=== PATIENT | female | born 1950 | race Caucasian/White ===

== ENCOUNTER 2019-10-31 17:15 | Outpatient (CLI) | payer MEDICARE, OTHER | END 2019-10-31 17:16 | disposition home or self-care (01) | LOC: LAB 17:15 | PROVIDERS: ATTEND Internal Medicine | DX: Z11.59 Encounter for screening for other viral diseases (principal) | CPT/HCPCS: 81599 ==

== ENCOUNTER 2020-01-25 10:04 | Outpatient (CLI) | payer MEDICARE, OTHER ==
--- NOTE | 2020-01-25 13:09 | Ultrasound Report ---
PROCEDURE: Abdomen Limited INDICATIONS: ELEVATED LFTS TECHNIQUE: Real-time scanning was performed of the abdominal and retroperitoneal organs, with image documentatio n. COMPARISON: None. FINDINGS: Liver: Liver is normal in size and homogeneous in echotexture. Gallbladder: Gallbladder demonstrates no stones. Wall thickness is within normal limits measuring 9 m m. Biliary ducts: Intrahepatic bile ducts are non-dilated. Extrahepatic bile duct caliber measures 4.5 mm. Normal is 6-7 mm or less in diameter, or 10 mm or less post-cholecystectomy. Pancreas: Visualized portions of the pancreas are sonographically normal. Kidneys: Kidneys are normal in size and echotexture. Right kidney measures 10.4 cm long. No hydron ephrosis or nephrolithiasis. No solid masses. Aorta: Visualized aorta is normal in caliber at less than 3 cm. Iliacs: Proximal common iliac arteries are normal in caliber at less than 2.5 cm. IVC: Intrahepatic inferior vena cava is patent. Miscellaneous: No free abdominal fluid. IMPRESSION: Unremarkable exam. Reviewed by: Silvina Collins MD on 01/25/2020 1:08 PM PDT Approved by: Silvina Collins MD on 01/25/2020 1:08 PM PDT Station ID: [id number]
== END 2020-01-25 10:05 | disposition home or self-care (01) ==
LOC: DI 10:04
PROVIDERS: ATTEND Internal Medicine
DX: R74.8 Abnormal levels of other serum enzymes (principal)
CPT/HCPCS: 76705

== ENCOUNTER 2021-01-29 09:17 | Outpatient (CLI) | payer MEDICARE, OTHER ==
[2021-01-29 10:34] LABS: CREATININE 0.7 mg/dL (0.4-1.0)
[2021-01-29] MEDS ORDERED: GADOBUTROL 15 MMOL/15 ML VIAL ONE (11:15)
--- NOTE | 2021-01-29 12:07 | MRI Report ---
PROCEDURE: Cervical Spine W/WO INDICATIONS: RT ARM PAIN,RT SH PAIN,NECK PAIN, H/O RA AND SCC CONTRAST: IV CONTRAST: Gadavist ml: 6 TECHNIQUE: Noncontrast sagittal T1 spin echo and T2 fast spin echo, sagittal STIR, sagittal PD fast spin echo, f oraminal oblique sagittal T2 fast spin echo, axial gradient echo or T2 fast spin echo through the cer vical spine. After the administration of contrast, sagittal and axial T1 spin echo with fat saturati on through the cervical spine. COMPARISON: None. FINDINGS: Image quality: Motion artifact is noted. Alignment and curvature: There is minimal retrolisthesis seen at C3-C4, C4-C5, and C5-C6. Marrow: Marrow demonstrates normal overall signal. Spinal cord: Visualized spinal cord is normal in size, without white matter lesions. No suspicious intramedullary enhancement. No cerebellar tonsillar herniation. Paraspinous soft tissues: No paravertebral masses or suspicious enhancement. C2-C3: The disc height is well-preserved. There is loss of disc signal seen. Minimal to mild disc osteophyte complex is seen. Mild facet hypertrophy is seen. No significant neuroforaminal narrowin g can be seen. Mild central canal narrowing is seen. C3-C4: Moderate loss of disc height and signal are seen. Moderate disc osteophyte complex is seen, with a central disc osteophyte protrusion. There is mild right-sided and moderate left-sided facet hy pertrophy seen. There is moderate to severe bilateral neuroforaminal narrowing seen. At least moderat e central canal narrowing is seen, with associated mass effect upon the ventral spinal cord. C4-C5: At least moderate loss of disc height and disc signal can be seen. At least moderate disc ost eophyte complex is seen. There is a central disc osteophyte protrusion. Uncovertebral joint hypertrop hy is seen at this level. At least moderate bilateral neuroforaminal narrowing can be seen. There is moderate to severe bilateral neuroforaminal narrowing seen at this level. Moderate to severe central canal narrowing is seen, with associated ventral cord flattening, as on series 602 image 21. C5-C6: Moderate to severe loss of disc height and disc signal can be seen. Moderate to prominent dis c osteophyte complex is seen, which is eccentric to the right. There is a central disc osteophyte pro trusion. Uncovertebral joint hypertrophy is seen at this level. Moderate facet hypertrophy is seen . Moderate to severe bilateral neuroforaminal narrowing can be seen. Moderate to severe central sonny l narrowing is seen. Associated mass effect is seen upon the ventral spinal cord. C6-C7: Moderate loss of disc height and signal are seen. At least moderate disc osteophyte complex i s seen, which is eccentric to the left. There is a mild central/right disc osteophyte protrusion seen . Mild to moderate facet hypertrophy is seen at this level. There is at least moderate bilateral neur oforaminal narrowing seen, right worse than left. Mild to moderate central canal narrowing is seen, w ith minimal mass effect upon the ventral spinal cord. C7-T1: Moderate loss of disc height and signal are seen. Moderate disc osteophyte complex is seen, w hich is eccentric to the right. Mild to moderate facet hypertrophy is seen at this level. There is at least moderate bilateral neuroforaminal narrowing seen. No significant central canal narrowing is se en. IMPRESSION: Multiple levels of cervical spine degenerative change are seen, which are most prominent at the C3-C4 , C4-C5, and C5-C6 levels. Reviewed by: Callum Wilkerson MD on 01/29/2021 11:05 AM JADEN Approved by: Callum Wilkerson MD on 01/29/2021 11:05 AM JADEN Station ID: [id number]
[2021-01-29] MEDS ORDERED: GADOBUTROL 15 MMOL/15 ML VIAL IVP ONE (15:48)
== END 2021-01-29 09:18 | disposition home or self-care (01) ==
LOC: DI 09:17
PROVIDERS: ATTEND Psychiatry & Neurology Neurology
DX: M79.601 Pain in right arm (principal); M25.511 Pain in right shoulder; M50.21 Other cervical disc displacement, high cervical region; M48.02 Spinal stenosis, cervical region; M25.78 Osteophyte, vertebrae
CPT/HCPCS: 36415; 72156; 82565; A9585

== ENCOUNTER 2021-03-11 16:34 | Outpatient (CLI) | payer MEDICARE, OTHER | END 2021-03-11 16:35 | disposition home or self-care (01) | LOC: COV 16:34 | PROVIDERS: ATTEND Psychiatry & Neurology Neurology | DX: Z01.812 Encounter for preprocedural laboratory examination (principal); M79.601 Pain in right arm; Z20.822 Contact with and (suspected) exposure to COVID-19 ==

== ENCOUNTER 2021-03-18 08:53 | Outpatient (CLI) | payer MEDICARE, OTHER ==
[2021-03-18 09:09] LABS: BASOPHILS # (AUTO) 0.1 10^3/uL (0.0-0.1); EOSINOPHILS # (AUTO) 0.3 10^3/uL (0.0-0.7); EOSINOPHILS % (AUTO) 4.1 %; HCT - HEMATOCRIT 38.4 % (37.0-47.0); HGB - HEMOGLOBIN 12.1 g/dL (12.0-16.0); LYMPHOCYTES % (AUTO) 16.5 %; MEAN CORPUSCULAR HEMOGLOBIN 30.9 pg (27.0-31.0); MEAN CORPUSCULAR HGB CONC 31.5 g/dL (32.0-36.0); MEAN CORPUSCULAR VOLUME 98.2 fL (81.0-99.0); MEAN PLATELET VOLUME 9.3 fL (7.9-10.8); MONOCYTES # (AUTO) 0.7 10^3/uL (0.0-1.0); MONOCYTES % (AUTO) 11.4 %; NEUTROPHILS # (AUTO) 4.1 10^3/uL (1.5-6.6); NEUTROPHILS % (AUTO) 66.8 %; PLT - PLATELET COUNT 254 10^3/uL (130-450); RED BLOOD COUNT 3.91 10^6/uL (4.20-5.40); RED CELL DISTRIBUTION WIDTH 14.1 % (12.0-15.0); WHITE BLOOD COUNT 6.1 x10^3/uL (4.8-10.8)
[2021-03-18 09:34] LABS: ALBUMIN 4.1 g/dL (3.2-5.5); ALBUMIN/GLOBULIN RATIO 1.3 (1.0-2.2); ALKALINE PHOSPHATASE 55 IU/L (42-121); ALT ALANINE AMINOTRANSFERASE 26 IU/L (10-60); AST ASPARTATE AMINOTRANSFERASE 30 IU/L (10-42); BILIRUBIN,TOTAL 0.6 mg/dL (0.2-1.0); BUN - BLOOD UREA NITROGEN 18 mg/dL (6-20); CALCIUM 10.1 mg/dL (8.5-10.3); CARBON DIOXIDE - CO2 27 mmol/L (21-32); CHLORIDE 100 mmol/L (101-111); CHOLESTEROL 204 mg/dL; CREATININE 0.8 mg/dL (0.4-1.0); GFR - MDRD 70 (>89); GLUCOSE 99 mg/dL (70-100); HDL CHOLESTEROL 100 mg/dL; LDL CHOLESTEROL,CALCULATED 89 mg/dL; LDL/HDL RATIO 0.9 (<4.4); POTASSIUM 4.2 mmol/L (3.5-5.0); SODIUM 138 mmol/L (135-145); TOTAL PROTEIN 7.2 g/dL (6.7-8.2); TRIGLYCERIDES 77 mg/dL; VLDL CHOLESTEROL 15 mg/dL
[2021-03-18 09:47] LABS: THYROID STIMULATING HORMONE 0.99 uIU/mL (0.34-5.60)
[2021-03-18 09:49] LABS: FREE T4 (FREE THYROXINE) 1.27 ng/dL (0.58-1.64)
[2021-03-18 09:58] LABS: FOLATE 20.83 ng/mL (5.90 - >24.8)
[2021-03-20 12:02] LABS: HEPATITIS C ANTIBODY NON-REACTIVE (NON-REACTIVE)
[2021-03-21 15:31] LABS: THYROID PEROXIDASE ANTIBODIES 5 IU/mL (<9)
== END 2021-03-18 08:54 | disposition home or self-care (01) ==
LOC: LAB 08:53
PROVIDERS: ATTEND Internal Medicine
DX: M06.9 Rheumatoid arthritis, unspecified (principal); C73 Malignant neoplasm of thyroid gland; Z79.899 Other long term (current) drug therapy; G54.9 Nerve root and plexus disorder, unspecified; D64.9 Anemia, unspecified; C43.9 Malignant melanoma of skin, unspecified; Z13.6 Encounter for screening for cardiovascular disorders
CPT/HCPCS: 36415; 80053; 80061; 81599; 82746; 83721; 84439; 84443; 85025; 86376; 86800; 86803

== ENCOUNTER 2021-04-28 10:23 | Outpatient (CLI) | payer MEDICARE, OTHER ==
--- NOTE | 2021-04-29 08:20 | Mammography Report ---
BILATERAL DIGITAL SCREENING MAMMOGRAM 3D/2D: 04/28/2021 CLINICAL: Baseline exam. Routine screening. No prior exams were available for comparison. The tissue of both breasts is predominantly fatty. No significant masses, calcifications, or other findings are seen in either breast. IMPRESSION: NEGATIVE There is no mammographic evidence of malignancy. A 1 year screening mammogram is recommended. This exam was interpreted at Station ID: [id number]. NOTE: For mammograms, a report in lay terms will be sent to the patient. Approximately 15% of breast malignancies will not be visualized mammographically. In the management of a palpable breast mass, a negative mammogram must not discourage biopsy of a clinically suspicious lesion. Electronically Signed By: Alan Rogers acr/penrad:04/28/2021 15:25:55 ACR BI-RADS Category 1: Negative 3341F PARENCHYMAL PATTERN: (F) - The breast(s) demonstrate(s) diffuse fatty replacement. BI-RADS CATEGORY: (1) - 1 RECOMMENDATION: (ANNUAL) - Recommend routine annual screening mammography. [id number] 1 year screening LATERALITY: (B)
== END 2021-04-28 10:24 | disposition home or self-care (01) ==
LOC: DI 10:23
PROVIDERS: ATTEND Internal Medicine
DX: Z12.31 Encounter for screening mammogram for malignant neoplasm of breast (principal)

== ENCOUNTER 2022-09-21 10:29 | Outpatient (CLI) | payer MEDICARE, OTHER ==
[2022-09-21 10:54] LABS: BASOPHILS # (AUTO) 0.1 10^3/uL (0.0-0.1); BASOPHILS % (AUTO) 1.5 %; EOSINOPHILS # (AUTO) 0.3 10^3/uL (0.0-0.7); EOSINOPHILS % (AUTO) 5.9 %; HCT - HEMATOCRIT 37.3 % (37.0-47.0); HGB - HEMOGLOBIN 11.9 g/dL (12.0-16.0); LYMPHOCYTES # (AUTO) 1.1 10^3/uL (1.5-3.5); LYMPHOCYTES % (AUTO) 21.6 %; MEAN CORPUSCULAR HEMOGLOBIN 30.7 pg (27.0-31.0); MEAN CORPUSCULAR HGB CONC 31.9 g/dL (32.0-36.0); MEAN CORPUSCULAR VOLUME 96.1 fL (81.0-99.0); MEAN PLATELET VOLUME 9.4 fL (7.9-10.8); MONOCYTES # (AUTO) 0.3 10^3/uL (0.0-1.0); MONOCYTES % (AUTO) 6.1 %; NEUTROPHILS # (AUTO) 3.4 10^3/uL (1.5-6.6); NEUTROPHILS % (AUTO) 64.7 %; PLT - PLATELET COUNT 256 10^3/uL (130-450); RED BLOOD COUNT 3.88 10^6/uL (4.20-5.40); WHITE BLOOD COUNT 5.2 x10^3/uL (4.8-10.8)
[2022-09-21 11:14] LABS: % IRON SATURATION 25 % (20-50); ALBUMIN 3.9 g/dL (3.2-5.5); ALBUMIN/GLOBULIN RATIO 1.3 (1.0-2.2); ALKALINE PHOSPHATASE 39 IU/L (42-121); ALT ALANINE AMINOTRANSFERASE 22 IU/L (10-60); AST ASPARTATE AMINOTRANSFERASE 28 IU/L (10-42); BILIRUBIN,TOTAL 0.4 mg/dL (0.2-1.0); BUN - BLOOD UREA NITROGEN 19 mg/dL (6-20); CALCIUM 9.2 mg/dL (8.5-10.3); CARBON DIOXIDE - CO2 27 mmol/L (21-32); CHLORIDE 104 mmol/L (101-111); CHOL/HDL RATIO 1.9 (<4.4); CHOLESTEROL 226 mg/dL; CREATININE 0.7 mg/dL (0.4-1.0); GFR - MDRD 82 (>89); GLUCOSE 86 mg/dL (70-100); HDL CHOLESTEROL 118 mg/dL; IRON 90 ug/dL (28-170); LDL CHOLESTEROL,CALCULATED 99 mg/dL; LDL/HDL RATIO 0.8 (<4.4); POTASSIUM 4.1 mmol/L (3.5-5.0); SODIUM 137 mmol/L (135-145); TOTAL IRON BINDING CAPACITY 360 ug/dL (250-450); TRANSFERRIN 257 mg/dL (192-382); TRIGLYCERIDES 45 mg/dL; VLDL CHOLESTEROL 9 mg/dL
[2022-09-21 11:20] LABS: THYROID STIMULATING HORMONE 0.66 uIU/mL (0.34-5.60)
[2022-09-21 11:27] LABS: FERRITIN 90.7 ng/mL (11.0-306.8)
[2022-09-21 11:31] LABS: FOLATE 15.19 ng/mL (5.90 - >24.8)
[2022-09-21 13:00] LABS: ESTIMATED AVERAGE GLUCOSE 103 mg/dL (70-100); HEMOGLOBIN A1c% 5.2 % (4.27-6.07)
[2022-09-22 20:07] LABS: THYROGLOBULIN ANTIBODY 2.6 IU/mL (0.0-0.9)
== END 2022-09-21 10:30 | disposition home or self-care (01) ==
LOC: LAB 10:29
PROVIDERS: ATTEND Internal Medicine
DX: C43.9 Malignant melanoma of skin, unspecified (principal); G62.9 Polyneuropathy, unspecified; M06.9 Rheumatoid arthritis, unspecified; C73 Malignant neoplasm of thyroid gland; M79.676 Pain in unspecified toe(s)
CPT/HCPCS: 36415; 80053; 80061; 81599; 82607; 82728; 82746; 83036; 83540; 83721; 84443; 84466; 85025; 86376; 86800

== ENCOUNTER 2022-10-15 14:15 | Outpatient (CLI) | payer MEDICARE, OTHER ==
--- NOTE | 2022-10-16 10:18 | Mammography Report ---
BILATERAL DIGITAL SCREENING MAMMOGRAM 3D/2D WITH EXAGGERATED CC: 10/15/2022 CLINICAL: Routine screening. Comparison is made to exam dated: 04/28/2021 mammogram - [facility]. There are scattered areas of fibroglandular density in both breasts (category b / 25%-50% glandular t issue). No significant masses, calcifications, or other findings are seen in either breast. There has been no significant interval change. IMPRESSION: NEGATIVE There is no mammographic evidence of malignancy. A 1 year screening mammogram is recommended. Based on the Tyrer Cuzick model (a risk assessment model) the patients lifetime risk is 4.4% and her 10 year risk is 3.9%. According to the ACR, ACS, and NCCN guidelines, an annual breast MRI exam radha g with mammogram is recommended if the patients lifetime risk is 20% or greater. This exam was interpreted at Station ID: [id number]. NOTE: For mammograms, a report in lay terms will be sent to the patient. Approximately 15% of breast malignancies will not be visualized mammographically. In the management of a palpable breast mass, a negative mammogram must not discourage biopsy of a clinically suspicious lesion. Electronically Signed By: Julianna nunez/marlon:10/15/2022 16:08:55 letter sent: No_Letter ACR BI-RADS Category 1: Negative 3341F PARENCHYMAL PATTERN: (A) - The breast(s) demonstrate(s) scattered fibroglandular densities. BI-RADS CATEGORY: (1) - 1 Mammogram [id number] 1 year screening LATERALITY: (B)
== END 2022-10-15 14:16 | disposition home or self-care (01) ==
LOC: DI 14:15
PROVIDERS: ATTEND Internal Medicine
DX: Z12.31 Encounter for screening mammogram for malignant neoplasm of breast (principal)

== ENCOUNTER 2023-07-14 14:42 | Emergency (ER) | payer MEDICARE, OTHER ==
[2023-07-14 14:58] VITALS: BP 156/75; O2SAT 99
--- NOTE | 2023-07-14 15:58 | ED Physician Documentation ---
PD HPI UPPER EXT INJURY - Stated complaint Stated Complaint: RT ELBOW SWELLING/PX - Chief complaint Chief Complaint: Ext Problem - History obtained from History obtained from: Patient - History of Present Illness Location: Right, Elbow - Additonal information Additional information: 73-year-old female with history of rheumatoid arthritis presents emergency depar tment for right elbow swelling. Patient reports that she thinks she hit the back of her elbow on her vacuum a couple days ago and she has been noticing some increased swelling. She denies any pain with range of motion or any pain with palpation she says only time it hurts is when she uses her elbow to stand up from a chair. She denies any fevers or chills, no redness to the elbow. PD PAST MEDICAL HISTORY - Past Medical History Past Medical History: Yes Endocrine/Autoimmune: None Derm: None - Past Surgical History Past Surgical History: No Derm: Other - Present Medications Home Medications: Ambulatory Orders Medication Instructions Recorded Confirmed Folic Acid 1 mg PO DAILY 05/29/20 07/14/23 Gabapentin [Neurontin] 100 mg PO TID 05/29/20 02/02/23 Hydroxychloroquine [Plaquenil] 400 mg ORAL DAILY 05/29/20 07/14/23 Levothyroxine [Synthroid] 112 mcg PO QDAC 05/29/20 07/14/23 Methotrexate [Methotrexate Sodium] 2.5 mg PO DAILY 05/29/20 07/14/23 cycloSPORINE [Restasis] 1 each OP BID 05/29/20 02/02/23 - Allergies Allergies/Adverse Reactions: Allergies Allergy/AdvReac Type Severity Reaction Status Date / Time Penicillins Allergy Unknown Verified 07/14/23 14:50 - Social History Does the pt smoke?: No Smoking Status: Never smoker PD ED PE NORMAL - Vitals Vital signs reviewed: Yes - General General: Alert and oriented X 3, No acute distress, Well developed/nourished - Extremities Extremities: Other (Right elbow olecranon bursitis no erythema no rash no bruising it is not hot to the touch, Full range of motion without crepitus.) Results - Vitals Vitals: Vital Signs - 24 hr 07/14/23 14:51 Temperature 36.7 C Heart Rate 70 Respiratory 18 Rate Blood Pressure 156/75 H O2 Saturation 99 PD Medical Decision Making - ED course ED course: 73-year-old female with right elbow swelling. Patient appears to have an olecranon bursitis it is not warm to the touch there is no erythema no bruising she has full range of motion make me in the low suspicious or worried about a possible underlying fracture. She says she only experiences pain if she is using her elbow to stand up and pushing off of it. An Buzz wrap was applied to patient's right elbow to help with compression of the bursitis patient was told to follow-up with her primary care provider and if after a few weeks there is no improvement in bursitis for referral to helicopter specialist. I consider doing imaging but given that patient has full range of motion and has no pain in the fluid collection does not appear to have any sort of infection and is not warm to the touch patient has no systemic signs or symptoms of infection I do not believe imaging is warranted at this time. Departure - Departure Disposition: 01 Home, Self Care Clinical Impression: Bursitis of right elbow Qualifiers: Elbow bursitis location: olecranon bursitis Qualified Code(s): M70.21 - Olecranon bursitis, right elbow Condition: Good Instructions: ED Bursitis Elbow Olecranon Comments: Thank you for trusting us with your care. You have what is called an olecranon bursitis. Keep this elbow wrapped to help your body reabsorb the fluid. .If the swelling gets significantly worse, starts to feel hot to the touch, starts to appear red or significantly more painful please do not hesitate to report back to the emergency department. You can follow-up with your primary care provider in about a week or 2 for reevaluation of this. Wishing you a speedy recovery. Forms: PCP List Discharge Date/Time: 07/14/23 16:10
== END 2023-07-14 16:10 | disposition home or self-care (01) ==
LOC: ED 14:42
DX: M70.21 Olecranon bursitis, right elbow (principal); Z79.899 Other long term (current) drug therapy
CPT/HCPCS: 99281; 99283

== ENCOUNTER 2023-07-28 12:56 | Outpatient (CLI) | payer MEDICARE, OTHER ==
[2023-07-28 13:15] LABS: BASOPHILS # (AUTO) 0.1 10^3/uL (0.0-0.1); BASOPHILS % (AUTO) 0.9 %; EOSINOPHILS # (AUTO) 0.2 10^3/uL (0.0-0.7); EOSINOPHILS % (AUTO) 3.7 %; HCT - HEMATOCRIT 37.7 % (37.0-47.0); HGB - HEMOGLOBIN 11.7 g/dL (12.0-16.0); LYMPHOCYTES # (AUTO) 1.2 10^3/uL (1.5-3.5); MEAN CORPUSCULAR HEMOGLOBIN 29.3 pg (27.0-31.0); MEAN CORPUSCULAR VOLUME 94.5 fL (81.0-99.0); MONOCYTES # (AUTO) 0.5 10^3/uL (0.0-1.0); MONOCYTES % (AUTO) 9.6 %; NEUTROPHILS # (AUTO) 3.6 10^3/uL (1.5-6.6); NEUTROPHILS % (AUTO) 64.6 %; PLT - PLATELET COUNT 275 10^3/uL (130-450); RED BLOOD COUNT 3.99 10^6/uL (4.20-5.40); RED CELL DISTRIBUTION WIDTH 13.8 % (12.0-15.0); WHITE BLOOD COUNT 5.6 x10^3/uL (4.8-10.8)
[2023-07-28 13:29] LABS: ALBUMIN 4.1 g/dL (3.2-5.5); ALBUMIN/GLOBULIN RATIO 1.6 (1.0-2.2); BILIRUBIN,TOTAL 0.3 mg/dL (0.2-1.0); CALCIUM 9.8 mg/dL (8.5-10.3); CREATININE 0.8 mg/dL (0.6-1.3); CRP - C-REACTIVE PROTEIN 0.9 mg/dL (<0.5); POTASSIUM 3.7 mmol/L (3.5-4.5); TOTAL PROTEIN 6.6 g/dL (6.4-8.9)
== END 2023-07-28 12:57 | disposition home or self-care (01) ==
LOC: LAB 12:56
PROVIDERS: ATTEND Internal Medicine Rheumatology
DX: M81.0 Age-related osteoporosis without current pathological fracture (principal); Z79.899 Other long term (current) drug therapy; M05.79 Rheumatoid arthritis with rheumatoid factor of multiple sites without organ or systems involvement
CPT/HCPCS: 36415; 80053; 82306; 85025; 85651; 86140

== ENCOUNTER 2023-10-25 13:59 | Outpatient (CLI) | payer MEDICARE, OTHER ==
--- NOTE | 2023-10-26 08:56 | Mammography Report ---
BILATERAL DIGITAL SCREENING MAMMOGRAM 3D/2D WITH EXAGGERATED CC: 10/25/2023 CLINICAL: Routine screening. Comparison is made to exams dated: 04/28/2021 mammogram and 10/15/2022 mammogram - [facility]. Both breasts are heterogeneously dense, which may obscure small masses (category c / 51-75% glandular tissue). No significant masses, calcifications, or other findings are seen in either breast. There has been no significant interval change. IMPRESSION: NEGATIVE There is no mammographic evidence of malignancy. A 1 year screening mammogram is recommended. Based on the Tyrer Cuzick model (a risk assessment model) the patient's lifetime risk is 6.1% and her 10 year risk is 6.1%. According to the ACR, ACS, and NCCN guidelines, an annual breast MRI exam radha g with mammogram is recommended if the patient's lifetime risk is 20% or greater. This exam was interpreted at Station ID: [id number]. NOTE: For mammograms, a report in lay terms will be sent to the patient. Approximately 15% of breast malignancies will not be visualized mammographically. In the management of a palpable breast mass, a negative mammogram must not discourage biopsy of a clinically suspicious lesion. Electronically Signed By: Dann stanley/marlon:10/25/2023 14:38:41 letter sent: No_Letter ACR BI-RADS Category 1: Negative 3341F PARENCHYMAL PATTERN: (D) - The breast(s) demonstrate(s) heterogeneously dense fibroglandular mindy rodriguez. BI-RADS CATEGORY: (1) - 1 RECOMMENDATION: (ANNUAL) - Recommend routine annual screening mammography. [id number] 1 year screening LATERALITY: (B)
== END 2023-10-25 14:00 | disposition home or self-care (01) ==
LOC: DI 13:59
PROVIDERS: ATTEND Internal Medicine
DX: Z12.31 Encounter for screening mammogram for malignant neoplasm of breast (principal); R92.333 Mammographic heterogeneous density, bilateral breasts

== ENCOUNTER 2023-12-10 13:38 | Outpatient (CLI) | payer MEDICARE, OTHER ==
[2023-12-10 13:51] LABS: BASOPHILS # (AUTO) 0.1 10^3/uL (0.0-0.1); BASOPHILS % (AUTO) 0.8 %; EOSINOPHILS # (AUTO) 0.3 10^3/uL (0.0-0.7); EOSINOPHILS % (AUTO) 3.9 %; HCT - HEMATOCRIT 35.4 % (37.0-47.0); LYMPHOCYTES # (AUTO) 1.4 10^3/uL (1.5-3.5); LYMPHOCYTES % (AUTO) 18.1 %; MEAN CORPUSCULAR HEMOGLOBIN 28.4 pg (27.0-31.0); MEAN CORPUSCULAR HGB CONC 31.1 g/dL (32.0-36.0); MEAN CORPUSCULAR VOLUME 91.5 fL (81.0-99.0); MEAN PLATELET VOLUME 9.1 fL (7.9-10.8); MONOCYTES # (AUTO) 0.6 10^3/uL (0.0-1.0); MONOCYTES % (AUTO) 7.4 %; NEUTROPHILS # (AUTO) 5.4 10^3/uL (1.5-6.6); NEUTROPHILS % (AUTO) 69.7 %; PLT - PLATELET COUNT 305 10^3/uL (130-450); RED BLOOD COUNT 3.87 10^6/uL (4.20-5.40); RED CELL DISTRIBUTION WIDTH 14.6 % (12.0-15.0); WHITE BLOOD COUNT 7.7 x10^3/uL (4.8-10.8)
[2023-12-10 14:10] LABS: ALBUMIN/GLOBULIN RATIO 1.3 (1.0-2.2); BILIRUBIN,TOTAL 0.3 mg/dL (0.2-1.0); CALCIUM 10.1 mg/dL (8.5-10.3); CREATININE 0.8 mg/dL (0.6-1.3); CRP - C-REACTIVE PROTEIN 2.1 mg/dL (<0.5); POTASSIUM 3.7 mmol/L (3.5-4.5); TOTAL PROTEIN 7.2 g/dL (6.4-8.9)
== END 2023-12-10 13:39 | disposition home or self-care (01) ==
LOC: LAB 13:38
PROVIDERS: ATTEND Internal Medicine Rheumatology
DX: M05.79 Rheumatoid arthritis with rheumatoid factor of multiple sites without organ or systems involvement (principal); M81.0 Age-related osteoporosis without current pathological fracture
CPT/HCPCS: 36415; 80053; 82306; 85025; 86140